=== PATIENT | female | born 1965 | race Asian ===

== ENCOUNTER 2017-10-08 12:23 | Outpatient (CLI) | payer BC | END 2017-10-08 12:24 | disposition home or self-care (01) | LOC: BICMAMMO 12:23 | PROVIDERS: ATTEND Internal Medicine | DX: Z12.31 Encounter for screening mammogram for malignant neoplasm of breast (principal); R92.1 Mammographic calcification found on diagnostic imaging of breast | CPT/HCPCS: 77063; 77067 ==